=== PATIENT | female | born 2000 | race Caucasian/White ===

== ENCOUNTER 2025-07-11 12:06 | Outpatient (CLI) | payer BC, MEDICAID ==
--- NOTE | 2025-07-11 20:39 | RADIOLOGY REPORT ---
PROCEDURE: CT CT LOWER EXTREMITY 07/11/2025 12:22 PM INDICATION: PAIN IN LEFT FOOT Comparison Study: None TECHNIQUE: Axial images left ankle and left foot were obtained and reformatted in coronal and sagittal planes. All CT scans at this medical facility are performed using dose modulation techniques as appropriate to a performed exam including the following: Automated exposure control was utilized; adjustment of the MA and/or KV according to patient size; and use of iterative reconstruction technique. CT Dose: CTDI volume is 14.36 mGy. Dose-length product is 282.9 mGy*cm FINDINGS: Bones: No acute fracture or dislocation. Joint spaces are maintained. Well- defined lucency in the distal aspect of the 4th proximal phalanx which erodes through the inferior cortex as seen on series 602, image 32. Soft tissues: There is soft tissue swelling circumferentially about the 4th proximal phalanx IMPRESSION: 1. Soft tissue swelling circumferentially about the proximal 4th digit. 2. Well-defined lucency in the distal aspect of the 4th proximal phalanx which erodes through the inferior cortex. A consideration would be osteomyelitis although the smooth bony margins goes against acute osteomyelitis. Consider characterization with MRI if clinically indicated. 3. No acute fracture or dislocation.
== END 2025-07-11 23:59 | disposition home or self-care (01) ==
LOC: RAD 12:06
PROVIDERS: ATTEND Podiatrist Foot & Ankle Surgery
DX: M86.8X7 Other osteomyelitis, ankle and foot (principal); M79.672 Pain in left foot; M79.89 Other specified soft tissue disorders
CPT/HCPCS: 73700